=== PATIENT | male | born 1950 ===

== ENCOUNTER 2023-11-09 09:00 | Inpatient (IN) | payer OTHER ==
[~2023-11-09] VITALS: Ht 182.9 cm; Wt 81.6 kg
[2023-11-09 10:03] LABS: HEMATOCRIT 36.7 % (39.0-48.0); HEMOGLOBIN 12.4 g/dL (13-16.00); MEAN CELL VOLUME 95.3 fL (80.0-100.00); MEAN CORPUSCULAR HEMOGLOBIN 32.2 pg (27.00-32.0); MEAN CORPUSCULAR HGB CONC 33.8 g/dl (32.0-36.0); PLATELET COUNT 172 K/uL (150-450); RED BLOOD COUNT 3.86 M/uL (4.00-6.00); RED CELL DISTRIBUTION WIDTH 13.6 % (11.5-14.5)
[2023-11-09] MEDS ORDERED: ZESTRIL10 M1 PO (10:05)
[2023-11-09] MEDS ORDERED: CARVEDILOL6.25 MG (10:06)
[2023-11-09] MEDS ORDERED: ATORVASTATIN CA10 MG PO (10:06)
[2023-11-09 10:24] LABS: URINE APPEARANCE Clear; URINE BILIRRUBIN Negative (NEGATIVE); URINE BLOOD Negative; URINE COLOR Yellow; URINE EPITHELIAL CELLS 2.3 uL (0.0-38.8); URINE GLUCOSE Negative (NEGATIVE); URINE LEUKOCYTE Negative; URINE NITRATE Negative; URINE PROTEIN Negative (NEGATIVE); URINE UROBILINOGEN 0.2 E.U./dl; URINE WBC 4.6 uL (0.0-23.2)
[2023-11-09 10:38] LABS: CALCIUM 8.7 mg/dL (8.5-10.1); CREATININE SERUM 0.81 mg/dL (0.70-1.30); GFR 93.94; POTASSIUM 3.82 mEq/L (3.5-5.1)
[2023-11-09 10:44] LABS: URINE BACTERIA 3.7 uL (0.0-1933); URINE RBC 1.2 uL (0.0-20.8)
[2023-11-09 10:49] LABS: INR 1.04; PARTIAL THROMBOPLASTIN TIME 31.5 SECONDS (22.0-34.0); PROTHROMBIN TIME 10.9 SECONDS (9.0-11.5)
[2023-11-23] MEDS ORDERED: ENOXAPARIN SODIUM 40 MG/0.4 ML SYRINGE SUBCUTANEO ONE ×2 (11:47→14:15)
[2023-11-23] MEDS ORDERED: CEFAZOLIN SODIUM 1,000 MG VIAL ONE (11:50)
[2023-11-23] MEDS ORDERED: CARVEDILOL6.25 M1 (13:14)
[2023-11-23] MEDS ORDERED: LISINOPRIL10 MG (13:14)
[2023-11-23] MEDS ORDERED: SPIRONOLACTONE25 MG (13:14)
[2023-11-23] MEDS ORDERED: ATORVASTATIN CA10 MG (13:16)
[2023-11-23] MEDS ORDERED: LIDOCAINE HCL 1%/Epi 20ML VIAL IJ ONE (14:15)
[2023-11-23] MEDS ORDERED: CEFAZOLIN SODIUM 1,000 MG VIAL IV ONE (14:15)
[2023-11-23] MEDS ORDERED: HEMOSTATIC MATRIX 1 KIT KIT TOP ONE ×2 (15:22→20:30)
[2023-11-23] MEDS ORDERED: SURGIFLO APPLICATOR 1 EACH APPL TOP ONE ×2 (15:22→20:30)
[2023-11-23] MEDS ORDERED: SUGAMMADEX SODIUM 200 MG/2 ML VIAL IV ONE ×2 (19:03→20:30)
[2023-11-23] MEDS ORDERED: MORPHINE SULFATE 4 MG/ML VIAL IV PRN (20:15)
[2023-11-23] MEDS ORDERED: ONDANSETRON HCL 2 MG/ML VIAL IV PRN (20:15)
[2023-11-23] MEDS ORDERED: RINGERS SOLUTION,LACTATED 1,000 ML IV SCH (20:15)
[2023-11-23] MEDS ORDERED: OxyCODONE HCL/APAP UD (PERCOCET) PO PRN (20:15)
[2023-11-23] MEDS ORDERED: FAMOTIDINE/PF 20 MG/2 ML VIAL IV SCH (21:00)
[2023-11-23] MEDS ORDERED: ENALAPRILAT DIHYDRATE 1.25 MG/ML VIAL IV SCH (22:03)
[2023-11-23] MEDS ORDERED: ENALAPRILAT DIHYDRATE 1.25 MG/ML VIAL IV ONE (22:05)
[2023-11-24] MEDS ORDERED: CEFAZOLIN SODIUM 1,000 MG VIAL IV SCH
[2023-11-24] MEDS ORDERED: GABAPENTIN 300 MG CAPSULE PO SCH (01:00)
[2023-11-24] MEDS ORDERED: CARVEDILOL 6.25 MG TABLET PO SCH (09:00)
[2023-11-24] MEDS ORDERED: LISINOPRIL 10 MG TABLET PO SCH (09:00)
[2023-11-24 10:15] LABS: HEMATOCRIT 34.3 % (39.0-48.0); HEMOGLOBIN 11.5 g/dL (13-16.00); MEAN CORPUSCULAR HEMOGLOBIN 31.6 pg (27.00-32.0); MEAN CORPUSCULAR HGB CONC 33.6 g/dl (32.0-36.0); PLATELET COUNT 139 K/uL (150-450); RED BLOOD COUNT 3.65 M/uL (4.00-6.00); RED CELL DISTRIBUTION WIDTH 13.6 % (11.5-14.5)
[2023-11-24 10:47] LABS: CALCIUM 8.4 mg/dL (8.5-10.1); CREATININE SERUM 0.96 mg/dL (0.70-1.30); GFR 77.21; PHOSPHOROUS 2.7 mg/dL (2.5-4.9); POTASSIUM 3.95 mEq/L (3.5-5.1)
[2023-11-24] MEDS ORDERED: ENOXAPARIN SODIUM 40 MG/0.4 ML SYRINGE SUBCUTANEO SCH (17:00)
== END 2023-11-24 14:21 | disposition home or self-care (01) | DRG 707 ==
LOC: O/R 11-23 06:00 → SURH 11-23 09:00
PROVIDERS: Surgery; ADMIT Urology; ATTEND Urology
PROC: 0DNW4ZZ Release Peritoneum, Percutaneous Endoscopic Approach (ICD-10-PCS; 2023-11-23)
PROC: 8E0W4CZ Robotic Assisted Procedure of Trunk Region, Percutaneous Endoscopic Approach (ICD-10-PCS; 2023-11-23)
PROC: 0VT04ZZ Resection of Prostate, Percutaneous Endoscopic Approach (ICD-10-PCS; principal; 2023-11-23 13:15)
PROC: 07BC4ZZ Excision of Pelvis Lymphatic, Percutaneous Endoscopic Approach (ICD-10-PCS; 2023-11-23 13:15)
DX: C61 Malignant neoplasm of prostate (principal); K43.0 Incisional hernia with obstruction, without gangrene; K66.0 Peritoneal adhesions (postprocedural) (postinfection); Z20.822 Contact with and (suspected) exposure to COVID-19